=== PATIENT | male | born 1970 | race Caucasian/White ===

== ENCOUNTER 2017-01-01 22:52 | Emergency (ER) | payer OTHER ==
[~2017-01-01] VITALS: Ht 185.4 cm; Wt 101.2 kg
[~2017-01-01 22:52] MED LIST: AMOXICILLIN500 M1 PO; CILOXAN 0.1 APPLICAT LEFT EYE; CLEOCIN300 MG PO; CLINDAMYCIN HC150 MG PO; CLINDAMYCIN HC300 MG PO; DILAUDID2 MG PO; INDOCIN25 MG PO; KEFLEX500 MG PO; MOTRIN IB200 MG PO; NAPROSYN500 MG PO; NOHOMEMEDS; NORCO 5/3251 TABLET PO; NORCO 7.5/321 TABLET PO; PEN-VEE K,VEET500 MG PO; PERCOCET 5/31 TABLET PO; ROBITUSSIN AC,T10 ML PO; TYLENOL EXTRA500 MG PO; TYLENOL WITH C1 EACH PO; ULTRACET1 TABLET PO; ULTRAM50 MG PO; VALIUM5 MG PO
[2017-01-02 00:23] LABS: HEMATOCRIT 48.8 % (38.0-50.0); MCHC 33.6 G/DL (30.0-36.0); MCV 92.2 FL (86-99); MEAN PLAT.VOLUME 10.2 uM^3 (9.0-12.4); PLATELET COUNT 165 K/uL (156-360); RBC DIS.WIDTH-CV 12.5 % (11.8-14.6); RBC DIS.WIDTH-SD 42.8 % (39-53); RED BLOOD COUNT 5.29 M/uL (4.00-5.50); WHITE BLOOD COUNT 11.7 K/uL (4.1-10.2)
[2017-01-02 00:31] LABS: CHLORIDE 107 mEq/L (99-109); POTASSIUM 3.7 mEq/L (3.7-5.4); SODIUM 139 mEq/L (136-147)
[2017-01-02 00:33] LABS: GLUCOSE 101 mg/dL (70-99)
[2017-01-02 00:35] LABS: ANION GAP 8 MEQ/L (2-14)
[2017-01-02 00:37] LABS: GFR ESTIMATE (CALCULATED) > 59 mL/min/
[2017-01-02 00:38] LABS: UREA NITROGEN (BUN) 17 mg/dL (9-23)
[2017-01-02 00:51] LABS: ADD MIUA? YES; BILIRUBIN NEGATIVE; BLOOD NEGATIVE; COLOR YELLOW ((YELLOW)); GLUCOSE (STRIP) NEGATIVE; KETONES NEGATIVE; LEUKOCYTES NEGATIVE; NITRITE NEGATIVE; PROTEIN (STRIP) NEGATIVE; SPECIFIC GRAVITY 1.031 (1.000-1.030)
[2017-01-02 00:55] LABS: BACTERIA RARE /HPF; EPITHELIAL CELLS NONE SEEN /HPF; MUCUS 2+ /LPF; RED BLOOD CELLS 0-5 /HPF (0-5); WHITE BLOOD CELLS 0-5 /HPF (0-5)
[2017-01-02] MEDS ORDERED: VIBRAMYCIN100 MG PO (02:30)
[2017-01-02] MEDS ORDERED: PERCOCET 5/31 TABLET PO (02:30)
[2017-01-02 02:46] VITALS: BP 140/94
== END 2017-01-02 02:49 | disposition home or self-care (01) ==
LOC: EME 22:52
PROVIDERS: Physician Assistant
PROC: 0H99XZZ Drainage of Perineum Skin, External Approach (ICD-10-PCS; principal; 2017-01-02)
DX: L02.215 Cutaneous abscess of perineum (principal); F17.200 Nicotine dependence, unspecified, uncomplicated; F32.9 Major depressive disorder, single episode, unspecified; Z88.8 Allergy status to other drugs, medicaments and biological substances
CPT/HCPCS: 74177; 80048; 81003; 85027; 99281; 99285; J2270; J2405; J7030

== ENCOUNTER 2017-01-05 20:21 | Emergency (ER) | payer OTHER ==
[~2017-01-05] VITALS: Ht 185.4 cm; Wt 102.1 kg
[~2017-01-05 20:21] MED LIST changes: +VIBRAMYCIN100 MG PO
[2017-01-05 20:24] VITALS: BP 151/99
== END 2017-01-05 21:00 | disposition left against medical advice (07) ==
LOC: EME 20:21
DX: L72.3 Sebaceous cyst (principal); Z53.21 Procedure and treatment not carried out due to patient leaving prior to being seen by health care provider

== ENCOUNTER 2017-01-14 19:16 | Emergency (ER) | payer OTHER ==
[~2017-01-14] VITALS: Ht 185.4 cm; Wt 102.3 kg
[2017-01-14 21:34] VITALS: BP 140/98
== END 2017-01-14 21:40 | disposition home or self-care (01) ==
LOC: EME 19:16 → EXP 19:16
DX: L02.215 Cutaneous abscess of perineum (principal); F17.200 Nicotine dependence, unspecified, uncomplicated
CPT/HCPCS: 99281; 99283

== ENCOUNTER 2017-01-25 12:06 | Day surgery (SDC) | payer OTHER ==
[~2017-01-25] VITALS: Ht 188 cm; Wt 98.4 kg
[2017-01-25 13:04] VITALS: BP 131/93
[2017-01-25] MEDS ORDERED: PERCOCET 5/31 TABLET PO (16:49)
[2017-01-25] MEDS ORDERED: OXYCONTIN10 MG PO (16:49)
[2017-01-25] MEDS ORDERED: COLACE100 MG PO (16:49)
[2017-01-25 19:10] VITALS: BP 134/84
[2017-01-25 20:00] VITALS: BP 139/93
[2017-01-25 20:50] VITALS: BP 157/82
== END 2017-01-25 20:55 | disposition home or self-care (01) ==
LOC: SDC 12:06
DX: K64.5 Perianal venous thrombosis (principal); K64.8 Other hemorrhoids; K64.4 Residual hemorrhoidal skin tags; K60.3 Anal fistula; F17.200 Nicotine dependence, unspecified, uncomplicated
CPT/HCPCS: 88304; J0131; J0330; J0585; J1100; J1170; J2250; J3010; S0030

== ENCOUNTER 2017-01-30 11:54 | Emergency (ER) | payer OTHER ==
[~2017-01-30] VITALS: Ht 185.4 cm; Wt 97.6 kg
[~2017-01-30 11:54] MED LIST changes: +COLACE100 MG PO; +OXYCONTIN10 MG PO
[2017-01-30 12:59] LABS: BASOPHIL COUNT 0.1 K/uL (0-0.1); EOSINOPHIL COUNT 0.4 K/uL (0-0.3); HEMATOCRIT 52.3 % (38.0-50.0); IMMATURE GRANULOCYTE COUNT 0.1 K/uL; INSTRUMENT ABS NEUTROPHIL CT 8.3 K/uL; LYMPHOCYTE COUNT 1.8 K/uL (1.0-2.8); MCH 30.7 PG (29.0-34.0); MCHC 33.7 G/DL (30.0-36.0); MCV 91.3 FL (86-99); MEAN PLAT.VOLUME 10.3 uM^3 (9.0-12.4); MONOCYTE (%) 7.6 % (3-12); MONOCYTE COUNT 0.9 K/uL (0-0.8); NEUTROPHIL (%) 71.9 % (45-76); NEUTROPHIL COUNT 8.3 K/uL (1.8-6.4); PLATELET COUNT 173 K/uL (156-360); RBC DIS.WIDTH-CV 12.6 % (11.8-14.6); RBC DIS.WIDTH-SD 42.1 % (39-53); RED BLOOD COUNT 5.73 M/uL (4.00-5.50); WHITE BLOOD COUNT 11.5 K/uL (4.1-10.2)
[2017-01-30 13:11] LABS: CHLORIDE 107 mEq/L (99-109); POTASSIUM 4.1 mEq/L (3.7-5.4); SODIUM 140 mEq/L (136-147)
[2017-01-30 13:12] LABS: GLUCOSE 87 mg/dL (70-99)
[2017-01-30 13:14] LABS: ANION GAP 11 MEQ/L (2-14)
[2017-01-30 13:16] LABS: GFR ESTIMATE (CALCULATED) > 59 mL/min/
[2017-01-30 13:17] LABS: UREA NITROGEN (BUN) 13 mg/dL (9-23)
[2017-01-30] MEDS ORDERED: PERCOCET 5/31 TABLET PO (14:41)
[2017-01-30 15:14] VITALS: BP 142/85
== END 2017-01-30 15:15 | disposition home or self-care (01) ==
LOC: EME 11:54
PROVIDERS: Emergency Medicine
DX: G89.18 Other acute postprocedural pain (principal); K91.89 Other postprocedural complications and disorders of digestive system; K62.89 Other specified diseases of anus and rectum; K64.4 Residual hemorrhoidal skin tags; Z98.890 Other specified postprocedural states; F17.200 Nicotine dependence, unspecified, uncomplicated
CPT/HCPCS: 74177; 80048; 85025; 99281; 99285; J2270

== ENCOUNTER 2017-10-27 15:28 | Emergency (ER) | payer SELFPAY ==
[~2017-10-27] VITALS: Ht 185.4 cm; Wt 102.7 kg
[2017-10-27 16:02] LABS: HEMATOCRIT 50.5 % (38.0-50.0); HEMOGLOBIN 17.9 G/DL (12.5-16.6); MCH 32.1 PG (29.0-34.0); MCHC 35.4 G/DL (30.0-36.0); MCV 90.5 FL (86-99); PLATELET COUNT 181 K/uL (156-360); RBC DIS.WIDTH-CV 12.9 % (11.8-14.6); RED BLOOD COUNT 5.58 M/uL (4.00-5.50); WHITE BLOOD COUNT 12.5 K/uL (4.1-10.2)
[2017-10-27 16:11] LABS: CHLORIDE 109 mEq/L (99-109); POTASSIUM 3.9 mEq/L (3.7-5.4); SODIUM 141 mEq/L (136-147)
[2017-10-27 16:13] LABS: GLUCOSE 117 mg/dL (70-99)
[2017-10-27 16:16] LABS: CREATININE 0.9 mg/dL (0.6-1.3); GFR ESTIMATE (CALCULATED) > 59 mL/min/ (58.99-99999)
[2017-10-27 16:17] LABS: UREA NITROGEN (BUN) 18 mg/dL (9-23)
[2017-10-27 16:25] LABS: TROP-I INTERPRETATION NEGATIVE; TROPONIN-I < 0.01 ng/mL (0.0-0.30)
[2017-10-27 16:30] VITALS: BP 142/91
== END 2017-10-27 16:50 | disposition left against medical advice (07) ==
LOC: EME 15:28
DX: R07.9 Chest pain, unspecified (principal); F41.9 Anxiety disorder, unspecified; F32.9 Major depressive disorder, single episode, unspecified; F17.200 Nicotine dependence, unspecified, uncomplicated; Z88.2 Allergy status to sulfonamides; Z88.1 Allergy status to other antibiotic agents
CPT/HCPCS: 71046; 80048; 84484; 85027; 93005

== ENCOUNTER 2017-11-15 21:50 | Emergency (ER) | payer SELFPAY ==
[~2017-11-15] VITALS: Ht 185.4 cm; Wt 102.8 kg
[2017-11-15 21:54] VITALS: BP 141/102
[2017-11-16] MEDS ORDERED: NORCO 5/3251 TABLET PO (00:40)
[2017-11-16] MEDS ORDERED: AUGMENTIN875 MG PO (00:40)
[2017-11-16] MEDS ORDERED: MOTRIN600 MG PO (00:40)
== END 2017-11-16 01:02 | disposition home or self-care (01) ==
LOC: EME 21:50
DX: J32.0 Chronic maxillary sinusitis (principal); K08.89 Other specified disorders of teeth and supporting structures; F32.9 Major depressive disorder, single episode, unspecified; F41.9 Anxiety disorder, unspecified; F17.200 Nicotine dependence, unspecified, uncomplicated; Z88.2 Allergy status to sulfonamides; Z88.1 Allergy status to other antibiotic agents
CPT/HCPCS: 99281; 99284; J1885

== ENCOUNTER 2017-11-22 13:56 | Emergency (ER) | payer SELFPAY ==
[~2017-11-22] VITALS: Ht 185.4 cm; Wt 101.5 kg
[~2017-11-22 13:56] MED LIST changes: +AUGMENTIN875 MG PO; +MOTRIN600 MG PO
[2017-11-22 14:12] VITALS: BP 164/118
[2017-11-22] MEDS ORDERED: NORCO 5/3251 TABLET PO (15:30)
[2017-11-22] MEDS ORDERED: MOTRIN800 MG PO ×2 (15:40→15:44)
== END 2017-11-22 15:46 | disposition home or self-care (01) ==
LOC: EME 13:56
PROC: 3E0T3BZ Introduction of Anesthetic Agent into Peripheral Nerves and Plexi, Percutaneous Approach (ICD-10-PCS; principal; 2017-11-22)
DX: K08.89 Other specified disorders of teeth and supporting structures (principal); F17.200 Nicotine dependence, unspecified, uncomplicated; F32.9 Major depressive disorder, single episode, unspecified; F41.9 Anxiety disorder, unspecified; Z88.2 Allergy status to sulfonamides
CPT/HCPCS: 80048; 81003; 99281; 99283

== ENCOUNTER 2017-11-23 21:58 | Emergency (ER) | payer SELFPAY ==
[~2017-11-23] VITALS: Ht 185.4 cm; Wt 102.9 kg
[~2017-11-23 21:58] MED LIST changes: +MOTRIN800 MG PO
[2017-11-24 00:14] LABS: BASOPHIL (%) 0.6 % (0-1); BASOPHIL COUNT 0.1 K/uL (0-0.1); EOSINOPHIL (%) 1.5 % (0-5); EOSINOPHIL COUNT 0.2 K/uL (0-0.3); HEMATOCRIT 47.9 % (38.0-50.0); HEMOGLOBIN 16.5 G/DL (12.5-16.6); IMMATURE GRANULOCYTE (%) 0.7 % (0.0-0.7); LYMPHOCYTE (%) 22.4 % (15-42); LYMPHOCYTE COUNT 3.5 K/uL (1.0-2.8); MCH 31.5 PG (29.0-34.0); MCHC 34.4 G/DL (30.0-36.0); MCV 91.4 FL (86-99); MONOCYTE (%) 8.1 % (3-12); MONOCYTE COUNT 1.3 K/uL (0-0.8); NEUTROPHIL (%) 66.7 % (45-76); NEUTROPHIL COUNT 10.4 K/uL (1.8-6.4); PLATELET COUNT 198 K/uL (156-360); RBC DIS.WIDTH-CV 12.9 % (11.8-14.6); RBC DIS.WIDTH-SD 43.6 % (39-53); RED BLOOD COUNT 5.24 M/uL (4.00-5.50); WHITE BLOOD COUNT 15.5 K/uL (4.1-10.2)
[2017-11-24 00:22] LABS: CHLORIDE 109 mEq/L (99-109); POTASSIUM 3.9 mEq/L (3.7-5.4); SODIUM 141 mEq/L (136-147)
[2017-11-24 00:24] LABS: GLUCOSE 90 mg/dL (70-99)
[2017-11-24 00:28] LABS: CREATININE 0.9 mg/dL (0.6-1.3); GFR ESTIMATE (CALCULATED) > 59 mL/min/ (58.99-99999)
[2017-11-24 00:29] LABS: UREA NITROGEN (BUN) 17 mg/dL (9-23)
[2017-11-24] MEDS ORDERED: CIPRO500 MG PO (02:41)
[2017-11-24] MEDS ORDERED: FLAGYL500 MG PO (02:41)
[2017-11-24] MEDS ORDERED: ULTRACET1 TABLET PO (02:41)
[2017-11-24] MEDS ORDERED: MOTRIN800 MG PO (02:41)
[2017-11-24 02:52] VITALS: BP 166/106
== END 2017-11-24 02:53 | disposition home or self-care (01) ==
LOC: EME 21:58
PROVIDERS: Physician Assistant
DX: K60.4 Rectal fistula (principal); T36.0X6A Underdosing of penicillins, initial encounter; Z91.128 Patient's intentional underdosing of medication regimen for other reason; Z87.19 Personal history of other diseases of the digestive system; F17.200 Nicotine dependence, unspecified, uncomplicated; F32.9 Major depressive disorder, single episode, unspecified; Z88.2 Allergy status to sulfonamides; Z88.1 Allergy status to other antibiotic agents
CPT/HCPCS: 72193; 80048; 83605; 85025; 87040; 99281; 99284; J0295